=== PATIENT | male | born 1955 | race Caucasian/White ===

== ENCOUNTER 2024-11-03 15:17 | Inpatient (IN) | payer OTHER ==
[~2024-11-03] VITALS: Ht 177.8 cm; Wt 76.8 kg
[2024-11-03] MEDS ORDERED: ELIQUIS5 M1 PO (15:46)
[2024-11-03] MEDS ORDERED: ZESTRIL2.5 MG PO (15:47)
[2024-11-03] MEDS ORDERED: LOPRESSOR50 M1 PO (15:47)
[2024-11-03] MEDS ORDERED: ROSUVASTATIN CA10 MG PO (15:48)
[2024-11-03] MEDS ORDERED: OMEPRAZOLE MAGN20 MG PO (15:48)
[2024-11-03] MEDS ORDERED: LORazepam 1 MG TAB PO PRN (15:50)
[2024-11-04] MEDS ORDERED: MG-AL HYDROXIDE/SIMETICONE 30 ML UDC PO PRN (10:45)
[2024-11-04] MEDS ORDERED: ACETAMINOPHEN 325 MG TAB PO PRN (10:45)
[2024-11-04] MEDS ORDERED: CLEOCIN HCL150 MG PO (14:45)
[2024-11-04] MEDS ORDERED: FLORASTOR250 MG PO (14:46)
[2024-11-04 14:57] VITALS: BP 125/60
[2024-11-04] MEDS ORDERED: hydrOXYzine hydrochloride 50 MG/ML VIAL IM PRN (15:50)
[2024-11-04 20:00] VITALS: BP 134/78
[2024-11-04] MEDS ORDERED: LISINOPRIL 2.5 MG TAB PO SCH (21:00)
[2024-11-04] MEDS ORDERED: APIXABAN 5 MG TAB PO SCH (21:00)
[2024-11-04] MEDS ORDERED: Lactobacillus Acidophilus/LA 1 TAB TAB PO SCH (21:00)
[2024-11-05 08:00] VITALS: BP 115/75
[2024-11-05 08:58] LABS: BASO # 0.0 10*3/uL (0.0-0.1); BASO % 0.2 % (0.0-1.0); EOS # 0.0 10*3/uL (0.0-0.4); EOS % 0.2 % (1.0-4.0); MEAN CELL VOLUME 88.5 fl (80.0-94.0); MEAN CORPUSCULAR HGB 29.2 pg (27.0-31.0); MEAN PLATELET VOLUME 8.9 fl (9.6-12.3); MONO # 0.6 10*3/uL (0.1-1.0); MONO % 6.9 % (3.0-9.0); NEUT # 7.1 10*3/uL (2.3-7.9); NEUT % 79.6 % (47.0-73.0); NUCLEATED RED BLOOD CELL 0.0 % (0.0-0.0); NUCLEATED RED BLOOD CELL 0.0 10*3/uL (0.0-0.0); PLATELET COUNT AUTOMATED 348 10*3/uL (130-400); RED CELL DISTRI WIDTH 13.2 % (0-14.5)
[2024-11-05] MEDS ORDERED: ATORVASTATIN CALCIUM 20 MG TAB PO SCH (09:00)
[2024-11-05] MEDS ORDERED: OMEPRAZOLE 20 MG CAP PO SCH (09:00)
[2024-11-05 09:23] LABS: BUN 14 mg/dl (9-23); LDL CHOLESTEROL 65 mg/dL (9-159); SGPT/ALT 14 U/L (5-49)
[2024-11-05 09:34] LABS: VITAMIN D, 25-HYDROXY 46.2 ng/mL (30-100)
[2024-11-05] MEDS ORDERED: Memantine Hydrochloride 5 MG TAB PO SCH (11:30)
[2024-11-05] MEDS ORDERED: Rivastigmine Tartrate 4.6 MG/24 HR PATCH T SCH (11:30)
[2024-11-05] MEDS ORDERED: VALPROIC ACID 250 MG/5 ML UDC PO SCH (11:30)
[2024-11-05] MEDS ORDERED: CYANOCOBALAMIN 1,000 MCG/ML VIAL IM ONE (11:35)
[2024-11-05] MEDS ORDERED: hydrOXYzine hydrochloride 50 MG/ML VIAL IM ONE (14:35)
[2024-11-05 16:41] LABS: BILIRUBIN 1+ (Negative); BLOOD Trace-Lysed (Negative); CLARITY Clear (Clear); COLOR Dark Yellow (Yellow); KETONE 1+ (Negative); LEUKO ESTERASE Trace (Negative); NITRITE Negative (Negative); PH 5.5 (4.5-8.0); SPECIFIC GRAVITY 1.025 (1.001-1.030); UROBILINOGEN 1.0 E.U./dl (0.0-1.0)
[2024-11-05 16:47] LABS: BACTERIA 1+
[2024-11-05 20:00] VITALS: BP 137/76
[2024-11-06 08:00] VITALS: BP 120/84
[2024-11-06] MEDS ORDERED: LIDOCAINE 1 EA PATCH T SCH (17:15)
[2024-11-06] MEDS ORDERED: Memantine Hydrochloride 5 MG TAB PO SCH (21:00)
[2024-11-07 07:54] VITALS: BP 143/85
[2024-11-07] MEDS ORDERED: Rivastigmine Tartrate 9.5 MG/24 HR PATCH T SCH (09:00)
[2024-11-07] MEDS ORDERED: Water, Sterile 10 ML VIAL ONE (15:13)
[2024-11-07 20:00] VITALS: BP 105/71
[2024-11-07] MEDS ORDERED: Water, Sterile 10 ML VIAL IM PRN (22:10)
[2024-11-08] MEDS ORDERED: CYANOCOBALAMIN 1,000 MCG/ML VIAL IM SCH (10:00)
[2024-11-08 10:13] LABS: BASO # 0.0 10*3/uL (0.0-0.1); BASO % 0.5 % (0.0-1.0); EOS # 0.1 10*3/uL (0.0-0.4); EOS % 1.6 % (1.0-4.0); MEAN CELL VOLUME 87.8 fl (80.0-94.0); MEAN CORPUSCULAR HGB 29.8 pg (27.0-31.0); MEAN PLATELET VOLUME 9.2 fl (9.6-12.3); MONO # 0.6 10*3/uL (0.1-1.0); MONO % 9.4 % (3.0-9.0); NEUT # 4.1 10*3/uL (2.3-7.9); NEUT % 67.8 % (47.0-73.0); NUCLEATED RED BLOOD CELL 0.0 % (0.0-0.0); NUCLEATED RED BLOOD CELL 0.0 10*3/uL (0.0-0.0); PLATELET COUNT AUTOMATED 308 10*3/uL (130-400); RED CELL DISTRI WIDTH 13.2 % (0-14.5)
[2024-11-08 10:34] LABS: BUN 27 mg/dl (9-23); SGPT/ALT 18 U/L (5-49)
[2024-11-08] MEDS ORDERED: Fosfomycin Tromethamine 3 GM PDS PO SCH (11:00)
[2024-11-08 20:00] VITALS: BP 153/81
[2024-11-08] MEDS ORDERED: Mirtazapine 15 MG TAB PO SCH (21:00)
[2024-11-09] MEDS ORDERED: RIVASTIGMINE 13.3 MG/24 HR TDM T SCH (09:00)
[2024-11-09 20:00] VITALS: BP 104/88
[2024-11-09] MEDS ORDERED: risperiDONE 0.5 MG TAB PO SCH (21:00)
[2024-11-10 08:00] VITALS: BP 113/57
[2024-11-10] MEDS ORDERED: Ziprasidone Hydrochloride 40 MG CAP PO SCH (17:00)
[2024-11-10 20:00] VITALS: BP 111/90
[2024-11-11 08:00] VITALS: BP 122/70
[2024-11-11] MEDS ORDERED: Ziprasidone Hydrochloride 60 MG CAP PO SCH (17:00)
[2024-11-11 20:00] VITALS: BP 132/76
[2024-11-11] MEDS ORDERED: Menthol/Zinc Oxide 4 GM THIN T SCH (21:00)
[2024-11-12 08:00] VITALS: BP 120/65
[2024-11-12 20:00] VITALS: BP 131/75
[2024-11-13 08:00] VITALS: BP 120/81
[2024-11-13 11:14] LABS: BASO # 0.0 10*3/uL (0.0-0.1); BASO % 0.4 % (0.0-1.0); EOS # 0.1 10*3/uL (0.0-0.4); EOS % 0.9 % (1.0-4.0); MEAN CELL VOLUME 87.9 fl (80.0-94.0); MEAN CORPUSCULAR HGB 30.1 pg (27.0-31.0); MEAN PLATELET VOLUME 9.1 fl (9.6-12.3); MONO # 0.7 10*3/uL (0.1-1.0); MONO % 7.9 % (3.0-9.0); NEUT # 6.6 10*3/uL (2.3-7.9); NEUT % 77.5 % (47.0-73.0); NUCLEATED RED BLOOD CELL 0.0 % (0.0-0.0); NUCLEATED RED BLOOD CELL 0.0 10*3/uL (0.0-0.0); PLATELET COUNT AUTOMATED 321 10*3/uL (130-400); RED CELL DISTRI WIDTH 13.4 % (0-14.5)
[2024-11-13 11:37] LABS: BUN 22 mg/dl (9-23); SGPT/ALT 22 U/L (5-49)
[2024-11-13] MEDS ORDERED: Cyproheptadine Hydrochloride 4 MG TAB PO SCH (17:00)
[2024-11-13 20:00] VITALS: BP 120/75
[2024-11-14 09:27] VITALS: BP 147/88
[2024-11-14] MEDS ORDERED: Fosfomycin Tromethamine 3 GM PDS PO ONE (19:20)
[2024-11-14 20:00] VITALS: BP 150/85
[2024-11-15 08:00] VITALS: BP 104/68
[2024-11-15 08:53] LABS: BASO # 0.0 10*3/uL (0.0-0.1); BASO % 0.4 % (0.0-1.0); EOS # 0.1 10*3/uL (0.0-0.4); EOS % 1.3 % (1.0-4.0); MEAN CELL VOLUME 88.0 fl (80.0-94.0); MEAN CORPUSCULAR HGB 29.5 pg (27.0-31.0); MEAN PLATELET VOLUME 9.2 fl (9.6-12.3); MONO # 0.7 10*3/uL (0.1-1.0); MONO % 7.7 % (3.0-9.0); NEUT # 7.6 10*3/uL (2.3-7.9); NEUT % 80.1 % (47.0-73.0); NUCLEATED RED BLOOD CELL 0.0 % (0.0-0.0); NUCLEATED RED BLOOD CELL 0.0 10*3/uL (0.0-0.0); PLATELET COUNT AUTOMATED 336 10*3/uL (130-400); RED CELL DISTRI WIDTH 13.2 % (0-14.5)
[2024-11-15 09:14] LABS: BUN 29 mg/dl (9-23); SGPT/ALT 23 U/L (5-49)
[2024-11-15 20:00] VITALS: BP 137/97
[2024-11-16 20:00] VITALS: BP 139/83
[2024-11-17 08:00] VITALS: BP 146/85
[2024-11-17 20:00] VITALS: BP 126/80
[2024-11-18 09:00] VITALS: BP 119/98
[2024-11-18 16:53] LABS: BILIRUBIN 1+ (Negative); BLOOD 2+ (Negative); CLARITY Clear (Clear); COLOR Orange (Yellow); KETONE Trace (Negative); LEUKO ESTERASE Trace (Negative); NITRITE Negative (Negative); PH 5.5 (4.5-8.0); SPECIFIC GRAVITY 1.025 (1.001-1.030); UROBILINOGEN 1.0 E.U./dl (0.0-1.0)
[2024-11-18 17:01] LABS: BACTERIA 1+; RBC 31-40 rbc/hpf (0-2)
[2024-11-18 20:00] VITALS: BP 105/84
[2024-11-19 08:00] VITALS: BP 129/78
[2024-11-19 08:35] LABS: BASO # 0.0 10*3/uL (0.0-0.1); BASO % 0.3 % (0.0-1.0); EOS # 0.0 10*3/uL (0.0-0.4); EOS % 0.1 % (1.0-4.0); MEAN CELL VOLUME 89.9 fl (80.0-94.0); MEAN CORPUSCULAR HGB 29.4 pg (27.0-31.0); MEAN PLATELET VOLUME 9.7 fl (9.6-12.3); MONO # 0.9 10*3/uL (0.1-1.0); MONO % 8.5 % (3.0-9.0); NEUT # 8.2 10*3/uL (2.3-7.9); NEUT % 82.2 % (47.0-73.0); NUCLEATED RED BLOOD CELL 0.0 % (0.0-0.0); NUCLEATED RED BLOOD CELL 0.0 10*3/uL (0.0-0.0); PLATELET COUNT AUTOMATED 387 10*3/uL (130-400); RED CELL DISTRI WIDTH 13.4 % (0-14.5)
[2024-11-19 08:37] LABS: BUN 39 mg/dl (9-23); SGPT/ALT 35 U/L (5-49)
[2024-11-19] MEDS ORDERED: SODIUM CHLORIDE 0.45% 1,000 ML IV ONE ×2 (16:05→19:05)
[2024-11-19 20:00] VITALS: BP 140/75
[2024-11-20 06:42] LABS: BUN 54.0 mg/dl (9-23)
[2024-11-20 08:44] VITALS: BP 127/81
[2024-11-20 20:00] VITALS: BP 120/87
[2024-11-21] MEDS ORDERED: SODIUM CHLORIDE 0.45% 1,000 ML IV ONE (06:50)
[2024-11-21 07:50] VITALS: BP 139/82
[2024-11-21 08:24] LABS: BUN 63.0 mg/dl (9-23)
[2024-11-21 13:55] VITALS: BP 124/74
[2024-11-21 15:00] LABS: BUN 68.0 mg/dl (9-23)
[2024-11-21 16:14] VITALS: BP 108/72
[2024-11-21 20:00] VITALS: BP 115/58
[2024-11-21] MEDS ORDERED: SODIUM CHLORIDE 0.45% 500 ML IV ONE (21:35)
[2024-11-22 08:00] VITALS: BP 112/67
[2024-11-22 08:03] LABS: BUN 85.0 mg/dl (9-23)
[2024-11-22] MEDS ORDERED: B121000 MCG/1 IM (09:39)
[2024-12-05] MEDS ORDERED: CYANOCOBALAMIN 1,000 MCG/ML VIAL IM SCH (10:00)
== END 2024-11-22 10:11 | disposition home or self-care (01) | DRG 883 ==
LOC: 3N 15:17
PROVIDERS: Counselor Professional; Registered Nurse; ADMIT Psychiatry & Neurology Psychiatry; ATTEND Psychiatry & Neurology Psychiatry
PROC: GZHZZZZ Group Psychotherapy (ICD-10-PCS; principal; 2024-11-05)
PROC: GZ56ZZZ Individual Psychotherapy, Supportive (ICD-10-PCS; 2024-11-05)
DX: F63.81 Intermittent explosive disorder (principal); N17.0 Acute kidney failure with tubular necrosis; F02.811 Dementia in other diseases classified elsewhere, unspecified severity, with agitation; E87.0 Hyperosmolality and hypernatremia; F43.10 Post-traumatic stress disorder, unspecified; G30.9 Alzheimer's disease, unspecified; F02.80 Dementia in other diseases classified elsewhere, unspecified severity, without behavioral disturbance, psychotic disturbance, mood disturbance, and anxiety; I48.91 Unspecified atrial fibrillation; K21.9 Gastro-esophageal reflux disease without esophagitis; E78.5 Hyperlipidemia, unspecified; I10 Essential (primary) hypertension; Z88.0 Allergy status to penicillin; Z88.5 Allergy status to narcotic agent; Z91.041 Radiographic dye allergy status; Z79.899 Other long term (current) drug therapy; Z86.711 Personal history of pulmonary embolism; Z87.891 Personal history of nicotine dependence